=== PATIENT | female | born 1970 | race Caucasian/White ===

== ENCOUNTER 2019-07-09 09:58 | Day surgery (SDC) | payer BC ==
[~2019-07-09] VITALS: Ht 152.4 cm; Wt 49.9 kg
[2019-07-09] MEDS ORDERED: ROCURONIUM BROMIDE 10 MG/ML (ZEMURON) IV ONE (12:35)
[2019-07-09] MEDS ORDERED: ISOFLURANE 15 MIN GAS INH ONE (12:35)
[2019-07-09] MEDS ORDERED: NS IRRIG SOLN 1000 ML IR ONE (12:35)
[2019-07-09] MEDS ORDERED: BUPIVACAINE /EPINEPHRINE/PF 0.5% 30 ML VIAL INJ ONE (12:35)
[2019-07-09] MEDS ORDERED: fentaNYL CITRATE 250 MCG/5 ML AMP IV ONE (12:35)
[2019-07-09] MEDS ORDERED: LR 1,000 ML IV.SOLN IV ONE (12:35)
[2019-07-09] MEDS ORDERED: WATER FOR IRRIGATION,STERILE 1,000 ML IRRIG.SOLN IR ONE (12:35)
[2019-07-09] MEDS ORDERED: D5W 100 ML IV.SOLN IV ONE (12:35)
[2019-07-09] MEDS ORDERED: PROPOFOL 200MG/ 20ML VIAL (DIPRIVAN) IV ONE (12:35)
[2019-07-09] MEDS ORDERED: ONDANSETRON HCL 4 MG/2 ML VIAL IVP ONE (12:35)
[2019-07-09] MEDS ORDERED: MIDAZOLAM HCL 5 MG/5 ML VIAL IVP ONE (12:35)
[2019-07-09] MEDS ORDERED: cefOXitin SODIUM 2 GM/VIAL (MEFOXIN) IV ONE (12:35)
[2019-07-09] MEDS ORDERED: HYDROmorphone 2 MG TAB PO PRN (13:00)
[2019-07-09] MEDS ORDERED: ONDANSETRON HCL 4 MG/2 ML VIAL IVP PRN (13:00)
[2019-07-09] MEDS ORDERED: IBUPROFEN 800 MG TABLET PO PRN (13:00)
[2019-07-09] MEDS ORDERED: KETOROLAC TROMETHAMINE 30 MG VIAL IVP PRN (13:00)
[2019-07-09] MEDS ORDERED: OXYCODONE/ACETAMINOPHEN 5-325 TABLET PO PRN ×2 (13:00)
[2019-07-09] MEDS ORDERED: LR 1,000 ML IV SCH ×2 (13:59→14:02)
[2019-07-09] MEDS ORDERED: METOCLOPRAMIDE HCL 10 MG/2 ML VIAL IVP PRN ×2 (14:00→14:15)
[2019-07-09] MEDS ORDERED: MORPHINE 4 MG/ML INJ. SYRINGE IVP PRN ×6 (14:00→14:15)
[2019-07-09] MEDS ORDERED: METOCLOPRAMIDE HCL 10 MG/2 ML VIAL ONE (15:48)
[2019-07-09] MEDS ORDERED: MORPHINE 4 MG/ML INJ. SYRINGE ONE (15:48)
[2019-07-09 16:59] VITALS: BP_SYST 97
[2019-07-09 20:06] VITALS: BP_SYST 105
[2019-07-10 00:08] VITALS: BP_SYST 95
[2019-07-10 05:07] VITALS: BP_SYST 95
[2019-07-10 07:37] VITALS: BP_SYST 105
[2019-07-10] MEDS ORDERED: HYDR-4272 PO (07:42)
[2019-07-10] MEDS ORDERED: IBUP-1971 PO (07:42)
[2019-07-10] MEDS ORDERED: DOCU-144 PO (07:43)
== END 2019-07-10 08:00 | disposition home or self-care (01) ==
LOC: SDS 09:58 → SMU 10:09 → SDS 07-10 08:00
PROVIDERS: ATTEND Obstetrics & Gynecology
DX: N92.0 Excessive and frequent menstruation with regular cycle (principal); N70.11 Chronic salpingitis; N83.202 Unspecified ovarian cyst, left side; N84.0 Polyp of corpus uteri; J45.909 Unspecified asthma, uncomplicated; Z88.0 Allergy status to penicillin; M79.7 Fibromyalgia; Z91.011 Allergy to milk products; Z91.040 Latex allergy status; Z91.038 Other insect allergy status; Z98.890 Other specified postprocedural states
CPT/HCPCS: 58571; 88307; C1727; J0694; J1885; J2250; J2270; J2405; J2704; J2765; J3010; J3490; J7060; J7120; S2900; E0190